=== PATIENT | female | born 1965 | race African-American/Black ===

== ENCOUNTER 2017-04-12 00:17 | Emergency (ER) | payer OTHER ==
[~2017-04-12] VITALS: Ht 160 cm; Wt 91.8 kg
[~2017-04-12 00:17] MED LIST: ASMANEX TW200 MICRO1 IH; HARVONI 90-4001 EACH PO; NAPROXEN500 MG PO; VENTOLIN HFA18 GM IH; VITAMIN D250000 UNIT PO; WELLBUTRIN SR150 MG PO; ZESTORETIC 20-1 EAC1 NG
[2017-04-12 01:42] LABS: HEMATOCRIT 38.4 % (36.0-46.0); HEMOGLOBIN 13.2 G/DL (11.9-15.5); MCHC 34.4 G/DL (30.0-36.0); MCV 87.3 FL (83-99); PLATELET COUNT 302 K/uL (156-360); RBC DIS.WIDTH-CV 12.2 % (11.8-14.6); RBC DIS.WIDTH-SD 38.9 % (39-53); WHITE BLOOD COUNT 8.2 K/uL (4.1-10.2)
[2017-04-12 01:52] LABS: CHLORIDE 100 mEq/L (99-109); POTASSIUM 3.5 mEq/L (3.7-5.4); SODIUM 138 mEq/L (136-147)
[2017-04-12 01:54] LABS: GLUCOSE 255 mg/dL (70-99)
[2017-04-12 01:58] LABS: CREATININE 1.3 mg/dL (0.6-1.3); GFR ESTIMATE (CALCULATED) 55 mL/min/; UREA NITROGEN (BUN) 24 mg/dL (9-23)
[2017-04-12 02:04] LABS: TROP-I INTERPRETATION NEGATIVE; TROPONIN-I < 0.01 ng/mL (0.0-0.30)
[2017-04-12 03:40] LABS: APPEARANCE CLEAR ((CLEAR)); BILIRUBIN NEGATIVE; BLOOD NEGATIVE; COLOR STRAW ((YELLOW)); GLUCOSE (STRIP) NEGATIVE; KETONES NEGATIVE; LEUKOCYTES NEGATIVE; NITRITE NEGATIVE; PROTEIN (STRIP) NEGATIVE; SPECIFIC GRAVITY 1.011 (1.000-1.030); UCUL ADDED? NO; UROBILINOGEN 0.2 MG/DL (0.2-1.0)
[2017-04-12 05:21] VITALS: BP 118/71
== END 2017-04-12 05:37 | disposition home or self-care (01) ==
LOC: EME 00:17
PROVIDERS: Emergency Medicine
DX: R00.0 Tachycardia, unspecified (principal); E86.0 Dehydration; E11.9 Type 2 diabetes mellitus without complications; I10 Essential (primary) hypertension; J45.909 Unspecified asthma, uncomplicated; B19.20 Unspecified viral hepatitis C without hepatic coma; F32.9 Major depressive disorder, single episode, unspecified; F41.9 Anxiety disorder, unspecified
CPT/HCPCS: 71046; 71275; 80048; 81003; 84484; 85027; 85379; 93005; 99281; 99285; J7030